=== PATIENT | female | born 1950 | race American Indian/Alaskan Native ===

== ENCOUNTER 2024-08-22 22:05 | Inpatient (IN) | payer OTHER, SELFPAY ==
[2024-08-22 17:36] VITALS: BP 169/90
[2024-08-22 17:53] LABS: % Basophils 0.8 % (0-2); % Eosinophils 1.4 % (0-6); % Immature Granulocytes 0.4 % (0-0.5); % Lymphocytes 18.1 % (20.5-51.1); % Neutrophils 70.3 % (42.2-75.2); Absolute Basophils 0.1 10^3/uL (0-0.2); Absolute Eosinophils 0.1 10^3/uL (0-0.7); Absolute Lymphocytes 1.8 10^3/uL (1.2-3.4); Absolute Monocytes 0.9 10^3/uL (0.1-0.6); Absolute Neutrophils 7.1 10^3/uL (1.4-6.5); Hematocrit 33.2 % (37.0-47.0); Mean Corp Hgb Conc. 33.1 g/dL (33.0-37.0); Mean Corpuscular Hgb 26.7 pg (27.0-31.0); Mean Corpuscular Volume 80.6 fL (81.0-99.0); Mean Platelet Volume 10.5 fL (7.4-10.4); Nucleated Red Blood Cells % 0 %; Platelet Count 190 10^3/uL (130-400); Red Blood Cell Count 4.12 10^6/uL (4.20-5.40); White Blood Cell Count 10.1 10^3/uL (4.8-10.8)
[2024-08-22 18:15] LABS: AST (SGOT) 22 U/L (14-36); Albumin 4.1 g/dl (3.5-5.0); Alkaline Phosphatase 61 U/L (38-126); Blood Urea Nitrogen 21 mg/dl (7-17); Carbon Dioxide 27 mmol/L (22-30); Chloride 104 mmol/L (98-107); Glucose 270 mg/dl (70-99); Lipase 342 U/L (23-300); Potassium 4.5 mmol/L (3.5-5.1); Sodium 135 mmol/L (135-145); Total Bilirubin 0.6 mg/dl (0.2-1.3); Total Protein 7.1 g/dl (6.3-8.2); eGFR > 60.00
[2024-08-22 18:24] LABS: ALT (SGPT) 15 U/L (0-35); Calcium 9.3 mg/dl (8.4-10.2)
[2024-08-22 20:01] VITALS: BP 186/81
--- NOTE | 2024-08-22 20:07 | ED.GENMED ---
History of Present Illness
General
Chief Complaint: Change in Mental Status
Source: family
Exam Limitations: none
Time Seen by Provider: 08/22/24 19:49
History of Present Illness
History of Present Illness:
See MDM
If applicable-neuro sx onset
Date of onset of symptoms: 08/18/24
Past History
Past History
ED Past Medical History: HTN and NIDDM
ED Past Surgical History: None
Social History
Tobacco: Non-smoker
Alcohol: None
Phy Exam
Physical Exam
Physical Exam:
See MDM
Scores
NIH Stroke Score
Level of Consciousness: 0 - Alert
LOC Questions: 1-Answers one correctly
LOC Commands: 0-Performs both correctly
Best Horizontal Gaze: 0-Normal
Visual Dumont: 3=Bilateral hemianopia
Facial Palsy: 0=Normal, symmetrical
Motor - Right Arm: 0=No drift 10 seconds
Motor - Left Arm: 0=No drift 10 seconds
Motor - Right Le-No drift 5 seconds
Motor - Left Le-No drift 5 seconds
Limb Ataxia: 0-Absent
Sensation: 0-Normal
Best Language: 0-No aphasia
Dysarthria: 0-Normal
Extinction and Inattention: 0-No abnormality
NIH Total Score:: 4
Course
Orders/Labs/Results
Orders:
Orders
08/22/24 17:44
CT Head W/o Iv Contrast Urgent
Comment:
Reason For Exam: confusion headache
08/22/24 17:49
Complete Blood Count/With Diff Urgent
Comprehensive Metabolic Panel Urgent
Lipase Urgent
08/22/24 19:50
Electrocardiogram (*1) Urgent
Reason for Study: TIA/Stroke
EKG- Treatment ONCE
08/22/24 20:07
PTT Urgent
Prothrombin Time Urgent
08/22/24 20:20
Aspirin Chewable [Low Strength Aspirin] 324 mg PO NOW STA
08/22/24 20:22
Consult Neurology [NEUROLOGY CONSULT] Routine
Consulting Provider: Dakota Junior
Was physician already notified: Yes
Abnormal Lab Results
08/22/24
17:49
RBC 4.12 L 10^6/uL
(4.20-5.40)
Hgb 11.0 L g/dL
(12.0-16.0)
Hct 33.2 L %
(37.0-47.0)
MCV 80.6 L fL
(81.0-99.0)
MCH 26.7 L pg
(27.0-31.0)
MPV 10.5 H fL
(7.4-10.4)
Absolute Neuts (auto) 7.1 H 10^3/uL
(1.4-6.5)
Absolute Monos (auto) 0.9 H 10^3/uL
(0.1-0.6)
Lymphocytes % 18.1 L %
(20.5-51.1)
BUN 21 H mg/dl
(7-17)
Glucose 270 H mg/dl
(70-99)
Lipase 342 H U/L
(23-300)
08/22/24 17:49
08/22/24 17:49
Vital Signs
Initial and Last Documented VS:
Initial Vital Signs
Temp Pulse Resp BP Pulse Ox
98.5 F 88 18 169/90 97
08/22/24 17:36 08/22/24 17:36 08/22/24 17:36 08/22/24 17:36 08/22/24 17:36
Last Documented Vital Signs
Temp Pulse Resp BP Pulse Ox
98.5 F 77 21 186/81 100
08/22/24 17:36 08/22/24 20:15 08/22/24 20:15 08/22/24 20:01 08/22/24 20:15
MDM/Problems Addressed
Differential Diagnosis Includes:
HPI and MDM Narrative:
74-year-old female presenting with family for 3 days of headache, vomiting and disorientation. During this time, she has been complaining of visual issues but family assumed this was blurry vision. Blood work and CT head done in triage. It
appears that patient has large right posterior subacute stroke. She does have a history of hypertension and diabetes. Patient complains of blurry vision but it appears to be more consistent with a left homonymous hemianopia. Family also stated
that she has been more confused lately and intermittently leaning to [address] report and clinical findings, she was brought back to the treatment area. Case discussed with neurology
Physical exam
General: Well appearing and non-toxic
HEENT: protecting airway. Pupils equal reactive. EOMI. Visual field deficit noted to the left bilaterally
Neck: appears supple
CV: No evidence of cyanosis. Regular rate and rhythm
Resp: No accessory muscle use
Abd: Non-distended
Extremities: No deformities
Neuro: alert. Seems somewhat disoriented. Visual field cut noted
Psych: Normal affect
Skin: Intact
Problems Addressed including Acute and Chronic Conditions affecting care:
1. Subacute stroke
Acuity: acute
Prognosis: stable
Details: Patient is not a lytic candidate given duration of symptoms. Will ultimately admit for further workup
Updates
Case discussed with neurology. Neurology concerned about possible mass. Upon further questioning, patient does not develop a headache with coughing. Her headache is completely resolved at the moment. Her vomiting is preceded by nausea.
Neurology comfortable with aspirin and admitting
Differential Diagnosis (but not limited to): Stroke, tension headache, migraine, mass
Testing considered: CT angiogram
Drug therapy (if applicable): OTC meds, please see d/c instruction regarding Rx drugs
Amount and/or Complexity of Data Reviewed
Clinical info obtained from: Patient and family
External data reviewed: N/A
Labs I independently reviewed (but not limited to): Mild anemia, hyperglycemia
Radiology: The CT scan was personally and independently reviewed. In addition, official CT report reviewed.
Pulse Ox: not hypoxic
EKG independently reviewed: Sinus rhythm, normal axis, no STEMI
Continuity Coordinator: Sinus rhythm
Critical Care: N/A
Risk of Complication:
Social Determinants of health: Good social support
Discussed with other providers: Neurology
Escalation of Care includes Admit/Obs: Given subacute infarct, will admit for further workup
Occasional wrong word or 'sound a like' substitutions may have occurred due to the inherent limitations of voice recognition software. Read the chart carefully and recognize, using context, where substitutions have occurred.
*Critical Care Note
Total Time (30-74mins, 75-104mins- exclusive of procedures): Not Applicable
ED Attending Note
-
Portions of this chart may have been created with voice recognition software.� Occasional wrong word or��sound alike� substitutions may have occurred due to the inherent limitations of voice recognition software.
Discharge Plan
Departure
Patient Disposition: Admit
Date of Disposition: 08/22/24
Time of Disposition: 20:23
Admit to: Telemetry
Presentation/result/management discussed w/ accepting MD/DO: Hospitalist
Discharge Problem:
Stroke
Interventions
Interventions:
*Risk Screen - Suicide Last Done: 08/22/24 17:36
*General Assessment Last Done: 08/22/24 17:36
ED- Pulmonary Assessment Last Done: 08/22/24 20:00
ED- Neurological Assessment Last Done: 08/22/24 20:00
ED- Cardiac Assessment Last Done: 08/22/24 20:00
Discharge Date and Time
Print Language: FRENCH
[2024-08-22 20:32] LABS: INR 0.99; PT 13.6 Sec (11.4-14.6)
[2024-08-22] MEDS: LOW STRENGTH ASPIRIN 324 MG PO (20:32)
[2024-08-22 20:33] LABS: APTT 29.9 Sec (23.4-35.0)
--- NOTE | 2024-08-22 20:47 | HPS.HSE ---
Addendum entered and electronically signed by Arturo Beltran DO 08/22/24 22:40:
Patient seen and examined independently. Agree with findings and plan as set forth by KETTY Clay.
Patient is a 74y F with PMH significant for hypertension, DM-II and RA who presents to ED c/o 4 days of headache and vision changes. Symptoms started on Tuesday evening / Tuesday with R sided headache. Patient then developed N/V on Tuesday and
her headache became much more severe. She received OTC medications for headache with little relief. The nausea and headache gradually improved over the next 2 days. Today family noted that patent was having some vision issues - unable to see
things in the periphery / to the sides. She was taken to an Race Board Attendant for evaluation and was advised to come to the ED for further work-up.
CT scan done in the ED shows large area of decreased attenuation in the R SENIOR CYBER SECURITY ANALYST distribution c/w subacute CVA versus mass / edema.
Ass:
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
Hypertension
DM-II
Rheumatoid Arthritis
GERD
Iron Deficiency Anemia
Plan:
Admit for further evaluation and treatment.
ASA daily. Add statin.
Follow exam for neurologic changes - no evident / focal weakness. Pos L visual field deficit.
MRI in AM with and without contrast given concern for possible mass.
Neurology evaluation for additional recommendations.
PT / OT evaluations.
Adjust antihypertensive med regimen for normotension.
Hold oral hypoglycemics. Cover with SSI and update A1C.
Continue leflunomide.
Original Note:
Family Physician
-
Family Physician: NOT KNOW UNKNOWN - PT DOES
Chief Complaint
-
headache, nausea and vomiting
History of Present Illness
74-year-old female with PMH for type 2 Dm, RA,HTN presented to us for 3 days of headache, vomiting and disorientation. her headache was mainly on the right side. the back of her neck was hurting as well. she started vomiting yesterday. she
complained of blurry vision. she was not able to see from the side of her eyes. she was noted confused yesterday. denied fever, chills, congestion and cough. denied chest pain, sob. denied abdominal pain. denied dysuria or hematuria.
CT with the impression of Large area slight decreased attenuation in the expected right SENIOR CYBER SECURITY ANALYST territory most likely representing an evolving subacute nonhemorrhagic infarct. Mass lesion with white matter edema would be unlikely but cannot be entirely
excluded. Recommend MRI for more complete evaluation.
patient recived asa in ER. admitting for further management.
Medical History
Past Medical History
Past Medical History: Reports Other
Additional Past Medical History:
HTN
type 2 Dm
RA
Past Surgical History: Reports Other
Additional Past Surgical History:
cataract surgery
right hip repair
Social History
Tobacco: Non-smoker
Alcohol: None
Drug: None
Living: With Family
Family History
Family History: Not pertinent
Allergies / Home Medications
Allergies reflects when Allergies were last updated in [employer]
Home Medications with original date entered in [employer]
Allergy/Medication List:
Allergies
Allergy/AdvReac Type Severity Reaction Status Date / Time
No Known Allergies Allergy Unverified 08/22/24 17:42
Home Medications
acetaminophen 325 mg tablet (Tylenol) 650 mg PO Q6HPRN PRN mild pain 08/22/24
cholecalciferol (vitamin D3) 50 mcg (2,000 unit) tablet (Vitamin D3) 150 mcg PO DAILY 08/22/24
famotidine 20 mg tablet (Pepcid AC) 20 mg PO DAILYPRN PRN gerd 08/22/24
ferrous fumarate-folic acid 324 mg (106 mg iron)-1 mg tablet 1 tab PO DAILY 08/22/24
glimepiride 2 mg tablet 2 mg PO BID 08/22/24
leflunomide 10 mg tablet 20 mg PO DAILY 08/22/24
metformin 500 mg tablet 500 mg PO BID 08/22/24
telmisartan 40 mg tablet 40 mg PO DAILY 08/22/24
vitamins A,C,K-qank-owcwhg 2,148 mcg-113 mg-45 mg-17.4 mg tablet (PreserVision AREDS) 1 tab PO Q48H 08/22/24
Review of Systems
-
Constitutional: Reports No Symptoms
EENT: Reports No Symptoms
Respiratory: Reports No Symptoms
Cardiac: Reports No Symptoms
Abdomen/GI: Reports No Symptoms
: Reports No Symptoms
Musculoskeletal: Reports No Symptoms
Skin: Reports No Symptoms
Neurological: Reports Headache and Other (vision loss, vomiting)
Endocrine: Reports No Symptoms
Hematologic/Lymphatic: Reports No Symptoms
Psych: Reports No Symptoms
Physical Exam
Vital Signs
Vital Signs
Temp Pulse Resp BP Pulse Ox
98.5 F 85 18 186/81 98
08/22/24 17:36 08/22/24 20:45 08/22/24 20:45 08/22/24 20:01 08/22/24 20:30
Physical Exam
General: Well Developed, Well Nourished and No Apparent Distress
HEENT: NormoCephalic, Moist mucous membranes and Atraumatic
Respiratory: Clear
Cardiac: S1/S2 and Regular Rhythm; No Murmur or Rub
GI: Soft, Non Tender, Non Distended and Normal Bowel Sounds; No Organomegaly
Rectal: Deferred by Provider
Musculoskeletal: No Clubbing, No Cyanosis and No Edema
Skin: No Rash
Neuro: AO x 3 and Nonfocal/grossly intact
Psych: Calm
Laboratory Results
-
08/22/24 17:49
08/22/24 17:49
Laboratory Results
PT 13.6 Sec (11.4-14.6) 08/22/24 20:07
INR 0.99 08/22/24 20:07
APTT 29.9 Sec (23.4-35.0) 08/22/24 20:07
Total Bilirubin 0.6 mg/dl (0.2-1.3) 08/22/24 17:49
AST 22 U/L (14-36) 08/22/24 17:49
ALT 15 U/L (0-35) 08/22/24 17:49
Alkaline Phosphatase 61 U/L (38-126) 08/22/24 17:49
Lipase 342 U/L (23-300) H 08/22/24 17:49
Data Reviewed
-
CT Scan: Report Reviewed by me
Lab Data: Labs Reviewed by me
Impression/Plan
-
#subacute CVA
-head CT with Large area slight decreased attenuation in the expected right SENIOR CYBER SECURITY ANALYST territory most likely representing an evolving subacute nonhemorrhagic infarct. Mass lesion with white matter edema would be unlikely but cannot be entirely excluded.
Recommend MRI for more complete evaluation.
-obtain MRI/MRA
-asa, statin
-obtain a1c, and lipid profile
-PT/OT
-neurology consult
#iron deficiency anemia
-hgb 11.0
-no active bleeding
-ctm
-ferrous sulfate continued
#GERD
-Pepcid continued
#type 2 Dm
-sliding scale
-CHO diet
-hold metformin and glimepiride
#RA
-leflunomide continued
#essential HTN
-telmisartan continued
#DVT Prophylaxis
-scd
#CODE status
-full code
[2024-08-22 21:00] VITALS: BP 182/104
[2024-08-22 22:00] VITALS: BP 164/73
[2024-08-22 22:16] VITALS: BMI 22.0
[2024-08-22] MEDS: LIPITOR 40 MG PO (22:32)
[2024-08-22 23:00] VITALS: BP 151/65
[2024-08-23] VITALS (8 sets, daily range): BP systolic 141–179; BP diastolic 53–101; PULSE 88–90; BMI 20.6
[2024-08-23 01:02] LABS: Glucose - Point of Care 240 mg/dl (70-99)
[2024-08-23 06:01] LABS: Hematocrit 32.8 % (37.0-47.0); Hemoglobin 10.7 g/dL (12.0-16.0); Mean Corp Hgb Conc. 32.6 g/dL (33.0-37.0); Mean Corpuscular Hgb 26.4 pg (27.0-31.0); Mean Platelet Volume 11.1 fL (7.4-10.4); Platelet Count 185 10^3/uL (130-400); Red Blood Cell Count 4.05 10^6/uL (4.20-5.40); Red Cell Dist. Width 13.1 % (11.5-14.5); White Blood Cell Count 10.1 10^3/uL (4.8-10.8)
[2024-08-23 06:26] LABS: HDL Cholesterol 31 mg/dl; LDL Cholesterol, Calculated 97 mg/dl; Total Cholesterol 163 mg/dl (50-199); Triglyceride 178 mg/dl (10-149); Very Low Density Lipoprotein 35 mg/dl (0-30)
--- NOTE | 2024-08-23 07:27 | W.PN.HOSP.TC ---
Today's Communication/Plan
-
Await Brain MRI
Assessment / Plan
Assessment / Plan
Physical Exam
General: Well Developed, Well Nourished and No Apparent Distress
HEENT: Normocephalic, Moist mucous membranes and Atraumatic
Respiratory: Clear to Auscultation Bilaterally
Cardiac: S1/S2 and Regular Rhythm
GI: Soft, Non Tender, Non Distended and Normal Bowel Sounds
Musculoskeletal: No Cyanosis and No Edema
Skin: Warm. Dry.
Neuro: AAO x 3 and Non-focal/grossly intact. Left homonymous hemianopsia.
Psych: Calm
Assessment/Plan
74y F with PMH significant for hypertension, DM-II and RA who presented to ED c/o 4 days of headache and vision changes. Symptoms started on Tuesday (August 18) evening / Tuesday (08/19) with R sided headache. Patient then developed N/V on Tuesday
and her headache became much more severe. She received OTC medications for headache with little relief. The nausea and headache gradually improved over the following 2 days. On 08/22/24, family noted that patent was having some vision issues -
unable to see things in the periphery / to the sides. She was taken to an Skip Hoist Engineer for evaluation and was advised to come to the ED for further work-up. CT scan done in the ED showed large area of decreased attenuation in the R ELECTRICAL MACHINIST
distribution c/w subacute CVA versus mass / edema.
#Right occipital mass straddling the MCA/ELECTRICAL MACHINIST territory -- differential diagnosis stroke vs. mass vs. abscess vs. bleed
-Await Brain MRI and MRA Head and Neck
-asa, statin
-Follow a1c, and lipid profile
-PT/OT
-neurology consult
#iron deficiency anemia
-hgb 11.0
-no active bleeding
-ctm
-ferrous sulfate continued
#GERD
-Pepcid continued
#type 2 Dm
-sliding scale
-CHO diet
-hold metformin and glimepiride
#RA
-leflunomide held
-I spoke with Pharmacist Maribel Childers: Leflunomide has a super long half-life (> 18 days) AND it has side effects that include headache and vision issues - both are in her chief complain for this visit.
#Essential HTN
-telmisartan continued
#DVT Prophylaxis
-scd. Lovenox.
#CODE status
-full code
Anticipated Discharge: 24 - 48 hours
Subjective/Interval History
-
Date of Service: August 23, 2024
Patient was seen and examined. She denied any headache, her vision symptoms are better -- later in the afternoon, she had a re-occurrence of her presenting symptoms. She also denied chest pain, shortness of breath or any other complaints.
Objective Data
-
Labs:
Laboratory Results
08/22/24 08/23/24
20:07 05:22
WBC 10.1
Hgb 10.7 L
Hct 32.8 L
Plt Count 185
PT 13.6
INR 0.99
APTT 29.9
Vital Signs:
Vital Signs
Temp Pulse Resp BP Pulse Ox
98.5 F 82 16 152/53 97
08/22/24 17:36 08/23/24 05:00 08/23/24 05:00 08/23/24 05:00 08/23/24 05:00
[2024-08-23] MEDS: LOW STRENGTH ASPIRIN 81 MG PO (08:14)
[2024-08-23] MEDS: FOLVITE 1 MG PO (08:14)
[2024-08-23] MEDS: FEOSOL 325 MG PO (08:15)
[2024-08-23] MEDS: COZAAR 50 MG PO (08:15)
[2024-08-23 08:36] LABS: Glucose - Point of Care 307 mg/dl (70-99)
--- NOTE | 2024-08-23 09:10 | PTOTSP ---
Speech Language Pathology
Pt seen for cognitive-linguistic evaluation. Attempted language line, but on hold for 15 minutes for gmat instructor before disconnecting (pt speaks Kannada dialect). Family chose to interpret for pt. No dysarthria reported by family. L neglect
noted with pt requiring cueing to see L side of page. Oriented to month and year, not day of month. Pt appeared impulsive and distractible throughout evaluation. Confrontation naming= 03/26. Semantic paraphasias and/or visual errors noted with
confrontation naming, although not reported by family in conversation. Examples include: 'bat' for 'pen,' 'bike' for 'wheelchair,' 'crab' for 'octopus.'
Pt seen for clinical bedside swallow evaluation. P.O. trials of regular solids, puree, soft solids, and thin liquids provided. Adequate mastication, bolus formation, and A-P transit noted with no oral residue. No overt signs of aspiration.
Recommend:
(1) Regular solids/thin liquids
(2) General aspiration precautions
(3) Meds as tolerated
(4) SENIOR DIGITAL DESIGNER to continue to follow for cognitive-linguistic tx. Further dysphagia tx does not appear indicated at this time.
[2024-08-23] MEDS: NOVOLOG FLEXPEN-LOW RESISTANCE 4 UNITS SC (09:14)
--- NOTE | 2024-08-23 09:37 | PTCARENOTE ---
pt awake. speaks no albanian pt son at bedside translating. nihss done with night RN. left visual field cut present. follows all commands.
--- NOTE | 2024-08-23 09:41 | CM ---
Addendum entered by Nhi Oliveira 08/23/24 15:25:
Plan: Discharge to home with family w/ script for Outpatient Therapy
Addendum entered by Nhi Oliveira 08/23/24 10:07:
Pt does have glucometer and monitors sugars
Original Note:
CM reviewed chart and met with pt and her son at bedside. IA done. Pt is visiting from [place], has been here 2 months, staying with her son and his family. Pt is non Albanian speaking. Does have a traveler's insurance policy, policy information given
to Registration.
No family physician, offered Family Medicine residency program
Pharmacy: [facility] [address]
PLOF: Son reports that mother is independent with ambulation and ADLs at baseline, ambulated without a device, able to use steps
Transport to be determined
Plan: DC plan to be determined pending PT/OT/ Speech recommendations, CM will monitor and support coordination of care
[2024-08-23 09:53] LABS: Glycohemoglobin (HgbA1c) 8.5 % (4.0-5.6)
[2024-08-23 11:40] LABS: Glucose - Point of Care 217 mg/dl (70-99)
[2024-08-23] MEDS: NOVOLOG FLEXPEN-LOW RESISTANCE 2 UNITS SC (11:43)
--- NOTE | 2024-08-23 15:13 | CON.NEURO ---
Neuro Assessment/Plan
Assessment
Head CT imgs rev'd with patient and dtr, R occipital mass straddling the MCA/LIBRARY CATALOGING TECHNICIAN territory
the localization explains her symptoms with occipital explaining the left homo hemianopsia and the more parietal explaining the simple visual hallucinations
ddx including stroke, mass, abscess, bleed
need MRI brain with gado, MRA head/neck
ASA 81
Consultation
Order
Date of Consultation: 08/23/24
Requesting Provider: Rafael Wylie
Reason for Consult: Stroke
Subjective/Objective
Subjective Data
Date of Service: August 23, 2024
from ED notes:
74-year-old female presenting with family for 3 days of headache, vomiting and disorientation. During this time, she has been complaining of visual issues but family assumed this was blurry vision. Blood work and CT head done in triage. It
appears that patient has large right posterior subacute stroke. She does have a history of hypertension and diabetes. Patient complains of blurry vision but it appears to be more consistent with a left homonymous hemianopia. Family also stated
that she has been more confused lately and intermittently leaning to 1 side
I spoke with Dr Wylie and reviewed the head CT last night. no symptoms to suggest increased ICP. The headache was not worse with cough/straining, no double vision, vomiting always with nausea.
This afternoon, symptoms recurred. when she closes her eyes the simple visual hallucinations are still there in the left field. Dtr reports she is acting normally, no other apparent deficits
Objective Data
Vital Signs
Temp Pulse Resp BP Pulse Ox
36.8 C 88 16 174/76 97
08/23/24 11:20 08/23/24 08:39 08/23/24 08:39 08/23/24 08:39 08/23/24 08:39
Lab Results
08/23/24 05:22
08/22/24 17:49
PT 13.6 Sec (11.4-14.6) 08/22/24 20:07
INR 0.99 08/22/24 20:07
APTT 29.9 Sec (23.4-35.0) 08/22/24 20:07
Sodium 135 mmol/L (135-145) 08/22/24 17:49
Potassium 4.5 mmol/L (3.5-5.1) 08/22/24 17:49
BUN 21 mg/dl (7-17) H 08/22/24 17:49
Glucose 270 mg/dl (70-99) H 08/22/24 17:49
Calcium 9.3 mg/dl (8.4-10.2) 08/22/24 17:49
LDL Cholesterol, Calc 97 mg/dl 08/23/24 05:22
Patient Allergies
No Known Allergies Allergy (Unverified 08/22/24 17:42)
Physical Exam
-
L homonymous hemianopsia
face symmetric
grossly full strength
Medications
-
Active Medications
Generic Name Dose Route Start Last Admin
Trade Name Freq PRN Reason Stop Dose Admin
Acetaminophen 650 mg 08/22/24 22:07
Acetaminophen 650 Mg Rectal Suppository RECTAL 09/19/24 22:06
Q4HPRN PRN
LATIF, mild pain, or temp >100.4F
Acetaminophen 650 mg 08/22/24 22:07
Acetaminophen 325 Mg Tablet PO 09/19/24 22:06
Q4HPRN PRN
LATIF, mild pain, or temp >100.4F
Aspirin 81 mg 08/23/24 08:00 08/23/24 08:14
Aspirin 81 Mg Chewable Tablet PO 09/20/24 07:59 81 mg
DAILY OSWALD Administration
Atorvastatin Calcium 40 mg 08/22/24 22:07 08/22/24 22:32
Atorvastatin (Lipitor) 40 Mg Tablet PO 09/19/24 22:06 40 mg
QPM OSWALD Administration
Dextrose 12.5 grams 08/22/24 22:07
Dextrose 50% (0.5 Grams/Ml) 50 Ml Syringe IV 09/19/24 22:06
[id number] PRN
hypoglycemia
Protocol
Famotidine 20 mg 08/22/24 22:07
Famotidine 20 Mg Tablet PO 09/19/24 22:06
DAILYPRN PRN
gerd
Ferrous Sulfate 325 mg 08/23/24 08:00 08/23/24 08:15
Ferrous Sulfate 325 Mg Tablet PO 09/20/24 07:59 325 mg
DAILY OSWALD Administration
Folic Acid 1 mg 08/23/24 08:00 08/23/24 08:14
Folic Acid 1 Mg Tablet PO 09/20/24 07:59 1 mg
DAILY OSWALD Administration
Glucagon 1 mg 08/22/24 22:07
Glucagon 1 Mg Vial IM 09/19/24 22:06
PRN PRN
hypoglycemia
Protocol
Hydralazine HCl 10 mg 08/22/24 21:24
Hydralazine 20 Mg/Ml Vial IV 09/19/24 21:23
Q6HPRN PRN
hypertension
Insulin Aspart 0 units 08/23/24 07:30 08/23/24 11:43
Insulin Aspart Low Resistance 300 Units/3 Ml Pen.Injctr SC 09/20/24 07:29 2 units
AC OSWALD Administration
Protocol
Losartan Potassium 50 mg 08/23/24 08:00 08/23/24 08:15
Losartan 50 Mg Tablet PO 09/20/24 07:59 50 mg
DAILY OSWALD Administration
Sodium Chloride 0 flush 08/22/24 23:00
Sodium Chloride 0.9% (Flush) Syringe IV 09/19/24 22:59
PER PROTOCOL OSWALD
Home Medications
�Medication �Instructions �Recorded
acetaminophen 325 mg tablet 650 mg PO Q6HPRN PRN mild pain 08/22/24
(Tylenol)
cholecalciferol (vitamin D3) 50 150 mcg PO DAILY Supplement 08/22/24
mcg (2,000 unit) tablet (Vitamin
D3)
famotidine 20 mg tablet (Pepcid AC) 20 mg PO DAILYPRN PRN gerd 08/22/24
ferrous fumarate-folic acid 324 mg 1 tab PO DAILY Supplement 08/22/24
(106 mg iron)-1 mg tablet
glimepiride 2 mg tablet 2 mg PO BID Diabetes 08/22/24
leflunomide 10 mg tablet 20 mg PO DAILY Autoimmune Disorder 08/22/24
metformin 500 mg tablet 500 mg PO BID Diabetes 08/22/24
telmisartan 40 mg tablet 40 mg PO DAILY Blood Pressure 08/22/24
vitamins A,C,L-uucq-qefjrn 2,148 1 tab PO Q48H Supplement 08/22/24
mcg-113 mg-45 mg-17.4 mg tablet
(PreserVision AREDS)
--- NOTE | 2024-08-23 16:34 | PTCARENOTE ---
pt having periods of seeing flashing lights and colors in her peripheral vision. dr mata and dr Davalos notified. dr Mata in to see pt.
[2024-08-23 16:44] LABS: Glucose - Point of Care 196 mg/dl (70-99)
[2024-08-23] MEDS: NOVOLOG FLEXPEN-LOW RESISTANCE 1 UNITS SC (16:46)
[2024-08-23] MEDS: LIPITOR 40 MG PO (16:46)
[2024-08-23] MEDS: APRESOLINE 10 MG IV (16:46)
[2024-08-23] MEDS: TYLENOL 650 MG PO (17:10)
[2024-08-23 17:49] LABS: Glucose - Point of Care 173 mg/dl (70-99)
--- NOTE | 2024-08-23 18:36 | PTCARENOTE ---
Received pt from ED, pt ambulated from stretcher to bed with RW and 1 assistive personnel, VSS, AAOx3, NIHSS of 1, family at bedside for translation. Pt and family oriented to call ravi and room.
[2024-08-23 22:04] LABS: Glucose - Point of Care 166 mg/dl (70-99)
[2024-08-23] MEDS: LOVENOX 40 MG SC (22:09)
[2024-08-24] VITALS (24 sets, daily range): BP systolic 110–206; BP diastolic 60–121; BMI 20.5
[2024-08-24 01:01] LABS: Glucose - Point of Care 232 mg/dl (70-99)
--- NOTE | 2024-08-24 01:21 | W.PN.UPDATE ---
Update Note
Progress Note Update
~ 12:52 am Pt with witnessed seizure activity, first lasted approx 1 minute, son at bedside and witnessed full seizure. Approximately 3-5 minutes later, patient had second seizure for approximately 90 seconds. Patient did bite tongue, was not
incontinent. Tonic/clonic seizure activity w/postical phase. BP 206/121, HR 117, Resp 20, Room air 98%, temp 98 degrees. Blood glucose 232.
TT to Dr. Junior, Neurology, updated on events. Requested Keppra load, 60 mg/kg now. Pharmacy notified of order and . And Ceribell monitoring if not back to baseline in one hour.
Patient w/third seizure around 1:20 am, that lasted for 90 seconds. Patient being transferred to ICU for closer monitoring and possible Ceribell monitoring if needed.
Fourth seizure @ 1:36 am, lasted approximately 90 seconds.
[2024-08-24] MEDS: KEPPRA 30 MG IV (01:32)
--- NOTE | 2024-08-24 04:35 | PTCARENOTE ---
Patient back from MRI about 2200, Prior to MRI patients NIH was a 2 no weakness, left side visual deficit. Pt was also experiencing gazing over ot the left and talking to someone that was not there, per family this was getting frequent but also
happened while she was in the ER, Nurse did observe episode during my assessment, patient was awake and taklking but could not refocus her onto her family or myself, lasted under a min and she had no knowledge of episode. Updated Megan HDEZ
regarding status, her VSS, she went to MRI about the same time. patient has been ST on monitor,
Patient was resting in bed son at bedside, rounds done at 2300, about 0030, son rang ravi and during my assessment patient was having a seizure, she was shaking rigid and eyes fixated to left, vital signs done, accu check as well as EKG, KETTY Guzman
up to see patient, Seizure lasted about a min, patient proceeded to have 3 more seizures with in the hour all lasting 1 min to 1 min 30 seconds, patient became grossly postictal after episodes. KETTY was there to witness seizures , call placed to
NEURO, Keppra loading dose given and patient sent to ICU for further monitoring. Report given to ICU nurse at bedside, patient was transferred in bed by ICU staff.
--- NOTE | 2024-08-24 04:40 | PTCARENOTE ---
~ 0230: Patient transferred from bed 2122 on ICU bed and monitor to room 3367. Dual RN NIHSS handoff assessment unable to be completed. The patient is drowsy does not follow commands . Patient's son is translating for staff. MAEx4. Even chest rise
with RR 19. SBP 168. ACCOUNTS PAYABLE TECHNICIAN made aware. SBP trending down without medication. Seizure pads in place. PEr KETTY Siegel, hold off ceribell application for 30 minutes to observe if the patient has any more seizures. Post 30 minutes, the
patient did not have any seizures. ACCOUNTS PAYABLE TECHNICIAN made aware and plan to continue holding off ceribell application. NSR on the monitor. Pt's son and daughter in law updated at the bedside. Questions answered. The patient's son does not want the patient to be
aware of cause of her illness, nor that she possibly had a stroke. Pt's family is worried that diagnosis may cause further stress to the patient. PAtient cleansed with CHG wipes. Family remains at the bedside,
[2024-08-24 04:44] LABS: Hematocrit 35.4 % (37.0-47.0); Hemoglobin 11.8 g/dL (12.0-16.0); Mean Corp Hgb Conc. 33.3 g/dL (33.0-37.0); Mean Corpuscular Hgb 26.5 pg (27.0-31.0); Mean Corpuscular Volume 79.6 fL (81.0-99.0); Mean Platelet Volume 10.8 fL (7.4-10.4); Platelet Count 197 10^3/uL (130-400); Red Blood Cell Count 4.45 10^6/uL (4.20-5.40); White Blood Cell Count 14.4 10^3/uL (4.8-10.8)
[2024-08-24 05:13] LABS: Blood Urea Nitrogen 17 mg/dl (7-17); Calcium 9.4 mg/dl (8.4-10.2); Carbon Dioxide 22 mmol/L (22-30); Chloride 106 mmol/L (98-107); Estimated Creatinine Clearance 69 ml/min; Glucose 290 mg/dl (70-99); Potassium 4.6 mmol/L (3.5-5.1); Sodium 136 mmol/L (135-145); eGFR > 60.00
--- NOTE | 2024-08-24 05:50 | PTCARENOTE ---
0410: Patient opened her eyes and having some conversation with her family. Conversation is still confused per family. Pupils are + 2. LAbs drawn and sent. Resting promoted.
--- NOTE | 2024-08-24 07:05 | CON.INTV ---
Addendum entered and electronically signed by Bailey Bridges MD 08/24/24 11:39:
Sodium noted to be 136.
In view of mild cerebral edema, will target sodium level of 145
3% bolus, 200 mL x 1 ordered, will check repeat BMP at about 2 PM.
Original Note:
Consultation
Consultation Request
Date/Time Consultation Requested: 08/24/2024
Date/Time Consultation Performed: 08/24/2024
Requesting Provider: Latonya Mcdermott
Performing Provider: Bailey Bridges
Reason for Consultation: Seizures
Medical History
-
Chief Complaint: Seizures
History of Present Illness:
Patient is a 74-year-old gentleman who presented to the hospital with about 3 days history of headache confusion and some nausea. Patient also reported some visual changes. A CT head was performed which was suggestive of large right posterior
subacute stroke. Patient has a history of hypertension and diabetes. Mass lesion was also a concern in addition to stroke and an MRI was recommended. Patient was admitted to the hospital and was started on aspirin in addition to usual stroke care
and a follow-up MRI was ordered.
Overnight, 08/24, patient had multiple witnessed seizure activities lasting anywhere close to 90 seconds each. A total of 4 episodes of seizures noted. Patient was loaded with Keppra and transferred to ICU for closer monitoring. Vendor Representatives
consult was requested for further input.
Past Medical History
Past Medical History: Reports Other
Additional Past Medical History:
HTN
type 2 Dm
RA
Past Surgical History: Reports Other
Additional Past Surgical History:
cataract surgery
right hip repair
Social History
Tobacco: Non-smoker
Alcohol: None
Drug: None
Living: With Family
Family History
Family History: Not pertinent
Allergies / Home Medications
Allergies / Home Medications
Allergies
Allergy/AdvReac Type Severity Reaction Status Date / Time
No Known Allergies Allergy Unverified 08/22/24 17:42
Home Medications
�Medication �Instructions �Recorded �Confirmed �Last Taken �Type
acetaminophen 325 mg tablet 650 mg PO Q6HPRN PRN mild pain 08/22/24 08/22/24 08/20/24 History
(Tylenol)
cholecalciferol (vitamin D3) 50 150 mcg PO DAILY Supplement 08/22/24 08/22/24 08/22/24 History
mcg (2,000 unit) tablet (Vitamin
D3)
famotidine 20 mg tablet (Pepcid AC) 20 mg PO DAILYPRN PRN gerd 08/22/24 08/22/24 Unknown History
ferrous fumarate-folic acid 324 mg 1 tab PO DAILY Supplement 08/22/24 08/22/24 08/22/24 History
(106 mg iron)-1 mg tablet
glimepiride 2 mg tablet 2 mg PO BID Diabetes 08/22/24 08/22/24 08/22/24 History
leflunomide 10 mg tablet 20 mg PO DAILY Autoimmune Disorder 08/22/24 08/22/24 08/22/24 History
metformin 500 mg tablet 500 mg PO BID Diabetes 08/22/24 08/22/24 08/22/24 History
telmisartan 40 mg tablet 40 mg PO DAILY Blood Pressure 08/22/24 08/22/24 08/22/24 History
vitamins A,C,N-mtal-rhcuvj 2,148 1 tab PO Q48H Supplement 08/22/24 08/22/24 08/20/24 History
mcg-113 mg-45 mg-17.4 mg tablet
(PreserVision AREDS)
Review of Systems
-
Hematologic/Lymphatic: Other (All 14 systems reviewed and negative except as stated above in the history of present illness. Pertinent positives are headache, intermittent visual blurriness and visual hallucinations.)
Vitals / Labs / Diagnostic Testing
Vital Signs
Temp Pulse Resp BP Pulse Ox
98.4 F 98 22 206/121 98
08/24/24 04:00 08/24/24 01:05 08/24/24 01:05 08/24/24 01:05 08/24/24 01:05
Lab Data
08/24/24 04:34
08/24/24 04:34
Diagnostic Testing:
Physical Exam
-
HEENT: Normocephalic
Cardiovascular: S1/S2
Respiratory: Clear and Non-Labored Respirations
GI: Soft and Non Distended
Neurology: Awake and Alert
Skin: Warm
General: Comfortable
Assessment
-
#1. Seizure disorder/Status Epilepticus
- At least 4 episodes overnight, suspect in the setting of acute stroke
- Protecting airway well
- Electrolytes are all unremarkable, no hypoglycemia noted.
- S/p loading dose of Keppra IV
- Monitor closely in the ICU, neurology consult
- As needed Ativan for breakthrough seizure
#2. Right occipital subacute stroke with concern for underlying mass lesion
- MRI/MRI suggestive of CVA rather than mass
- On aspirin, statins
- Telemetry to monitor for any arrhythmia
- Completed window of permissive hypertension, continue losartan
Other medical diagnoses:
- HTN
- H/o RA
- GERD
- iron deficiency anemia
- DM. Start nightly Lantus, 8 units and SSI in addition
DVT prophylaxis with subcu Lovenox
Discussed with neurology attending. Updated patient's and [id number] at bedside.
Critical Care time 72 mins -- The patient is admitted for acute critical illness for the treatment of vital organ failure and/or prevention of further life-threatening conditions. Total care includes time spent in review of history, physical exam,
medications, hemodynamic/ventilator parameters, laboratory data, imaging and discussion with house staff, pharmacy, respiratory therapy, actuarial analyst, and nursing.
Data:
CT Head 08/2024: Large area slight decreased attenuation in the expected right SCREEN PRINT OPERATOR territory most likely representing an evolving subacute nonhemorrhagic infarct. Mass lesion with white matter edema would be unlikely but cannot be entirely excluded.
Recommend MRI for more complete evaluation.
--- NOTE | 2024-08-24 07:28 | W.PN.HOSP.TC ---
Today's Communication/Plan
-
Keppra for multiple seizures overnight
Cardio consult for JUD and Zio eval. Patient going to [facility] next month.
Assessment / Plan
Assessment / Plan
Physical Exam
General: Well Developed, Well Nourished and No Apparent Distress
HEENT: Normocephalic, Moist mucous membranes and Atraumatic
Respiratory: Clear to Auscultation Bilaterally
Cardiac: S1/S2 and Regular Rhythm
GI: Soft, Non Tender, Non Distended and Normal Bowel Sounds
Musculoskeletal: No Cyanosis and No Edema
Skin: Warm. Dry.
Neuro: AAO x 3 and Non-focal/grossly intact. Left homonymous hemianopsia.
Psych: Calm
Assessment/Plan
74y F with PMH significant for hypertension, DM-II and RA who presented to ED c/o 4 days of headache and vision changes. Symptoms started on Tuesday (August 18) evening / Tuesday (08/19) with R sided headache. Patient then developed N/V on Tuesday
and her headache became much more severe. She received OTC medications for headache with little relief. The nausea and headache gradually improved over the following 2 days. On 08/22/24, family noted that patent was having some vision issues -
unable to see things in the periphery / to the sides. She was taken to an Order Taker for evaluation and was advised to come to the ED for further work-up. CT scan done in the ED showed large area of decreased attenuation in the R DONKEY RIDE OPERATOR
distribution c/w subacute CVA versus mass / edema.
#Right occipital mass straddling the MCA/DONKEY RIDE OPERATOR territory
-Brain MRI and MRA Head and Neck suggestive of a stroke -- suspected all DONKEY RIDE OPERATOR territory
-asa, statin
-Follow a1c, and lipid profile
-PT/OT
-neurology consult
-Cardiology consult for JUD and Zio (as per my communication with neurology on 08/24/24)
#Seizure disorder
#Status Epilepticus
- At least 4 episodes overnight 08/23/24 to 08/24/24, suspect in the setting of acute stroke
- S/p loading dose of Keppra IV
- Continue Keppra 1000 mg BID
- Monitor closely in the ICU, neurology consult
- As needed Ativan for breakthrough seizure
- Seizure precautions
#Mild Cerebral Edema
-Sodium 136
-3% bolus saline, 200 mL x 1 ordered --> goal is to have sodium 145 given mild cerebral edema
-Appreciate content architect
#iron deficiency anemia
-no active bleeding
-ctm
-ferrous sulfate continued
#GERD
-Pepcid continued
#type 2 Dm
-sliding scale
-CHO diet
-hold metformin and glimepiride
#RA
-leflunomide held
-I spoke on 08/23/24 with Pharmacist Maribel Childers: Leflunomide has a super long half-life (> 18 days) AND it has side effects that include headache and vision issues - both are in her chief complain for this visit.
#Essential HTN
-telmisartan continued
#Incidental note is made of a 1.8 cm left thyroid nodule
#DVT Prophylaxis
-scd. Lovenox.
#CODE status
-full code
Anticipated Discharge: > 48 hours
Subjective/Interval History
-
Date of Service: August 24, 2024
Patient was seen and examined. Overnight, patient had several seizures and was transferred to the intensive care unit.
Objective Data
-
Labs:
Laboratory Results
08/24/24
04:34
WBC 14.4 H
Hgb 11.8 L
Hct 35.4 L
Plt Count 197
Sodium 136
Potassium 4.6
Chloride 106
Carbon Dioxide 22
BUN 17
Creatinine 0.6
Glucose 290 H
Calcium 9.4
Vital Signs:
Vital Signs
Temp Pulse Resp BP Pulse Ox
98.4 F 82 18 110/64 97
08/24/24 04:00 08/24/24 07:00 08/24/24 07:00 08/24/24 07:00 08/24/24 07:00
I&O
08/23/24 08/24/24 08/25/24
06:59 06:59 06:59
Intake Total 35 / 35
Balance 35 / 35
--- NOTE | 2024-08-24 08:11 | PTOTSP ---
GOLF COURSE SUPERINTENDENT Note
Patient transferred to ICU level of care. New orders required to continue GOLF COURSE SUPERINTENDENT services. Will f/u when medically appropriate and orders received.
[2024-08-24 08:16] LABS: Glucose - Point of Care 245 mg/dl (70-99)
--- NOTE | 2024-08-24 08:20 | PTCARENOTE ---
Pt was rec'd from night RN in report, sleeping with son at bedside also asleep. Per report, family wants to let patient sleep as she has not been able to for several days. VSS, see flowsheet.
08:20-pt reassessed, son awake, pt drowsy / arousable, pts son translating (Kannada speaking) and states she is AOx3. Pt declines breakfast at this time, BG 245. Pt with significant tongue lac from sz, c/o discomfort. Son requesting pt remain lying
flat and let her sleep.
[2024-08-24] MEDS: TYLENOL 650 MG PO (08:38)
[2024-08-24] MEDS: NOVOLOG FLEXPEN-LOW RESISTANCE 2 UNITS SC (08:42)
--- NOTE | 2024-08-24 09:12 | PTCARENOTE ---
Pt transported to stat CT scan with AMANDA Sr and PCT, son accompanying.
[2024-08-24] MEDS: KEPPRA 1000 MG IV ×2 (09:49→20:18)
[2024-08-24] MEDS: FOLVITE 1 MG PO (09:49)
[2024-08-24] MEDS: LOW STRENGTH ASPIRIN 81 MG PO (09:49)
[2024-08-24] MEDS: COZAAR 50 MG PO (09:49)
[2024-08-24] MEDS: REGLAN 10 MG IV (09:49)
[2024-08-24] MEDS: FEOSOL 325 MG PO (10:03)
[2024-08-24] MEDS: SODIUM CHLORIDE 3% 200 IV (10:11)
--- NOTE | 2024-08-24 11:19 | PTCARENOTE ---
Plan was discussed in rounds with Drs. Bridges, Dr. Junior and nursing staff. Pt ok to participate in therapy evaluation, new orders requested. Orders rec'd for Keppra, Reglan and 3% Nacl per team, carried out. Pt with headache right temporal area,
medicated per orders, sleeping comfortably afterward. Son and DIL at bedside, verbalized understanding of plan of care. Stroke packet provided. Per son, the patient has debilitating anxiety and limited medical knowledge/education, he does not want
her to be told she has had a stroke as it would cause worsened anxiety. He is explaining her medical situation in broad terms and translating appropriately to patient. DIL feeding patient yogurt, pills swallowed whole with yogurt with no difficulty.
Safe environment continues.
--- NOTE | 2024-08-24 11:58 | W.PN.NEURO.1 ---
Today's Communication / Plan
-
ASA 81 given large stroke size cortical involvement
Keppra 1000 BID
ok to downgrade
Consider Alisia RENNER
Neuro Assessment/Plan
Assessment
Head CT imgs 08/22 rev'd with patient and dtr, R occipital hypodensity. upon further review. reasonable that this is all ECOLOGY TEACHER territory
MRI imgs from 08/[address] imgs done 08/24 after the seizures show that this is a stroke and demonstrated stability.
the localization explains her symptoms with occipital explaining the left homo hemianopsia and the more parietal explaining the visual hallucinations
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
Keppra 1000 BID would treat at least a year then may taper
ASA 81
as this is large vessel with no apparent vascular disease, ? embolic consider cardiology consult for Alisia RENNER. loop recorder would not be reasonable as she is going home to [facility] next month
Subjective/Objective
Subjective Data
Date of Service: August 24, 2024
~1 am spoke with Latonya HDEZ re: 2 brief seizures, status epilepticus, recommended keppra load 60/kg, had 2 more seizures. Recommended Ceribell if not back to baseline in 1 hr which was not necessary
this morning still having multiple episodes of of simple and complex visual hallucinations left visual field
Objective Data
Vital Signs
Temp Pulse Resp BP Pulse Ox
36.8 C 78 19 138/72 98
08/24/24 08:05 08/24/24 11:15 08/24/24 11:15 08/24/24 11:00 08/24/24 09:00
Lab Results
08/24/24 04:34
PT 13.6 Sec (11.4-14.6) 08/22/24 20:07
INR 0.99 08/22/24 20:07
APTT 29.9 Sec (23.4-35.0) 08/22/24 20:07
Sodium 136 mmol/L (135-145) 08/24/24 04:34
Potassium 4.6 mmol/L (3.5-5.1) 08/24/24 04:34
BUN 17 mg/dl (7-17) 08/24/24 04:34
Glucose 290 mg/dl (70-99) H 08/24/24 04:34
Calcium 9.4 mg/dl (8.4-10.2) 08/24/24 04:34
LDL Cholesterol, Calc 97 mg/dl 08/23/24 05:22
Patient Allergies
No Known Allergies Allergy (Unverified 08/22/24 17:42)
Physical Exam
-
Left homonymous hemianopsia
otherwise nonfocal
--- NOTE | 2024-08-24 14:13 | CON.CAR ---
Addendum entered and electronically signed by Josue Carrizales MD 08/24/24 16:30:
I saw and examined the patient.
The Customer Service Leader's note was reviewed and I agree with the note.
Comment:
GEN: sleepy, non responsive
HEENT: supple, anicteric, mmm
LUNGS: CTA, no wheezes/rales
CV: Reg, S1/S2, /6 syst LSB, no gallop
ABD: soft, BS+, NT/ND
EXT: No edema
NEURO: not following commands
SKIN: No rash
Plan:
74 year old female with past medical history of diabetes, hypertension who presents with blurry vision was found to have an acute stroke in the right BLINDSTITCH HEMMER territory. Subsequently she then had several seizures and was loaded with Keppra. We are
asked to evaluate her regarding possible JUD/cardiac monitoring.
Patient currently very lethargic being loaded with Keppra and poorly responsive.
Recommend start with transthoracic echo to evaluate LVEF. Will also pursue 14-day monitor as outpatient to look for paroxysmal atrial fibrillation. For now with her seizure history I would hold off on transesophageal echo. With her age she would
not be a candidate for PFO closure. Continue to follow on telemetry.
Will continue risk factor modification.
Blood pressure is overall stable. Continue losartan.
Continue antiplatelets including aspirin and atorvastatin for now.
Original Note:
Consultation
Consultation Request
Date/Time Consultation Performed: 08/24/24
Requesting Provider: Dr. Junior
Performing Provider: Katherin King PA-C for Dr. Carrizales
Reason for Consultation: CVA, eval for JUD
Medical History
-
Chief Complaint: headache, confusion
History of Present Illness:
Patient is a 74 yo F with PMH of HTN, DM2 who presented to [facility] ER due to 3 days of confusion, headache, and several episodes of vomiting. She had also complained of some blurry vision. Head CT showed large area of decreased attenuation in right
BLINDSTITCH HEMMER territory most likely representing evolving subacute nonhemorrhagic infarct. There was concern initially for possible mass rather than stroke, however by neurology review of imaging, felt to be most consistent with stroke. Cardiology consulted
for evaluation of JUD and cardiac monitoring as large vessel territory without significant vascular disease noted by imaging. Patient lethargic, as being Keppra loaded- overnight had 4 seizure episodes within approximately 10-minute time. No
seizures since initiation of Keppra. She is awake and oriented x 3 per family, she is ucy-[id number]-xcgejceb. No cardiac history per family. She is planned to return to [facility] on 09/26.
PMH:
Hypertension
Diabetes
Osteoarthritis
Past Medical History
Past Medical History: Other (in HPI)
Social History
Tobacco: Non-Smoker
Alcohol: None
Living: With Family
Family History
Family History: CAD (father)
Allergies / Home Medications
Allergy/AdvReac Type Severity Reaction Status Date / Time
No Known Allergies Allergy Unverified 08/22/24 17:42
�Medication �Instructions �Recorded �Confirmed �Type
acetaminophen 325 mg tablet 650 mg PO Q6HPRN PRN mild pain 08/22/24 08/22/24 History
(Tylenol)
cholecalciferol (vitamin D3) 50 150 mcg PO DAILY Supplement 08/22/24 08/22/24 History
mcg (2,000 unit) tablet (Vitamin
D3)
famotidine 20 mg tablet (Pepcid AC) 20 mg PO DAILYPRN PRN gerd 08/22/24 08/22/24 History
ferrous fumarate-folic acid 324 mg 1 tab PO DAILY Supplement 08/22/24 08/22/24 History
(106 mg iron)-1 mg tablet
glimepiride 2 mg tablet 2 mg PO BID Diabetes 08/22/24 08/22/24 History
leflunomide 10 mg tablet 20 mg PO DAILY Autoimmune Disorder 08/22/24 08/22/24 History
metformin 500 mg tablet 500 mg PO BID Diabetes 08/22/24 08/22/24 History
telmisartan 40 mg tablet 40 mg PO DAILY Blood Pressure 08/22/24 08/22/24 History
vitamins A,C,Y-dsma-iifnod 2,148 1 tab PO Q48H Supplement 08/22/24 08/22/24 History
mcg-113 mg-45 mg-17.4 mg tablet
(PreserVision AREDS)
Review of Systems
-
Unable to obtain full review of systems at this time due to: Language Barrier and Other (lethargic)
History Source: Family
Physical Exam
Vital Signs
Temp Pulse Resp BP Pulse Ox
98.2 F 74 18 134/71 96
08/24/24 08:05 08/24/24 13:15 08/24/24 13:15 08/24/24 13:00 08/24/24 13:25
Lab Results
08/24/24 04:34
Physical Exam
General: No Apparent Distress, Comfortable and Other (lethargic)
HEENT: Normocephalic, Anicteric and Moist Mucous Membranes
Respiratory: Clear and Non Labored Respirations
Cardiac: S1/S2 and Regular Rhythm
GI: Soft, Non Tender, Non Distended and Normal Bowel Sounds
Musculoskeletal: No Clubbing, No Cyanosis and No Edema
Skin: Warm and Dry
Impression / Plan
-
Primary Supervisor Receiving And Processing: none prior to admission
Assessment:
Presentation with confusion, headache
Large BLINDSTITCH HEMMER territory subacute infarct
Seizures
Hypertension
HLD
Diabetes
Osteoarthritis
Plan:
- Patient presented with confusion and headache and found to have large BLINDSTITCH HEMMER territory subacute infarct. With seizures overnight, now getting Keppra loaded. Cardiology consulted for evaluation for JUD and outpatient cardiac monitoring
- TTE ordered
- Would consider for outpatient JUD and next 1-2 weeks if remains seizure-free. no dysphagia issues per son
- BPs stable
- review of tele SR without arrhythmia
- would plan for 4 week cardiac monitoring upon DC
- hgb 8.5%. needs improved diabetic control
- started on statin this admission. LDL 97.
- she is planned to return to [facility] 09/26/24.
- d/w nursing. d/w patient and son/DIL at bedside
Data Reviewed
-
EKG: Tracing Personally Visualized and interpreted
CT Scan: Report Reviewed by me
MRI: Report Reviewed by me
Labs: Labs Reviewed by me
Old Records: Reviewed
--- NOTE | 2024-08-24 14:29 | PTCARENOTE ---
Labs drawn and sent per orders. Plan discussed w/ Katherin cardiology PA. Pt drowsy, resting when undisturbed. Son and DIL at bedside.
[2024-08-24] MEDS: NOVOLOG FLEXPEN-MODERATE RESISTANCE 3 UNITS SC (14:33)
[2024-08-24 14:40] LABS: Glucose - Point of Care 229 mg/dl (70-99)
[2024-08-24 15:32] LABS: Blood Urea Nitrogen 20 mg/dl (7-17); Calcium 9.1 mg/dl (8.4-10.2); Carbon Dioxide 24 mmol/L (22-30); Chloride 109 mmol/L (98-107); Estimated Creatinine Clearance 59 ml/min; Glucose 229 mg/dl (70-99); Potassium 4.1 mmol/L (3.5-5.1); Sodium 137 mmol/L (135-145); eGFR > 60.00
[2024-08-24] MEDS: SODIUM CHLORIDE 3% 250 IV (16:36)
--- NOTE | 2024-08-24 16:46 | CM ---
Therapy recommendation for home health. This CM met and spoke with son and Yola. Patient is visiting from [place]. Her [facility] insurance is travel insurance. Son said this insurance does not cover in-home services. He would prefer therapy teach
family what is needed and they will care for patient. Also, they have a friend that is a therapist and she will assist. Patient returns to [facility] the week of September.
[2024-08-24] MEDS: NOVOLOG FLEXPEN-MODERATE RESISTANCE 5 UNITS SC (18:03)
[2024-08-24] MEDS: LOVENOX 40 MG SC (18:03)
[2024-08-24] MEDS: LIPITOR 40 MG PO (18:03)
[2024-08-24 18:14] LABS: Glucose - Point of Care 258 mg/dl (70-99)
[2024-08-24 20:56] LABS: Blood Urea Nitrogen 21 mg/dl (7-17); Calcium 9.3 mg/dl (8.4-10.2); Carbon Dioxide 23 mmol/L (22-30); Chloride 113 mmol/L (98-107); Estimated Creatinine Clearance 69 ml/min; Glucose 205 mg/dl (70-99); Potassium 3.8 mmol/L (3.5-5.1); Sodium 140 mmol/L (135-145); eGFR > 60.00
[2024-08-24] MEDS: LANTUS 0.08 UNITS SC (21:43)
[2024-08-24 21:54] LABS: Glucose - Point of Care 203 mg/dl (70-99)
[2024-08-25] VITALS (13 sets, daily range): BP systolic 133–188; BP diastolic 65–95; PULSE 100; O2SAT 98; BMI 20.7
[2024-08-25] MEDS: APRESOLINE 10 MG IV (00:11)
[2024-08-25] MEDS: TYLENOL 650 MG PO (00:32)
--- NOTE | 2024-08-25 00:42 | PTCARENOTE ---
Late entry: Assumed care of pt at 1900. Pt is A/O x4, able to follow commands, see stroke/neuro flowsheet on worklist for full neuro assessment details. SR on monitor, HR in 80s. SpO2 97% on RA. Able to ambulate to BR with standby assistance. Son,
[id number]-[id number], and grandson at bedside.
Midnight: assessment unchanged. Pt's BP elevated, at one point was >180 and manual BP done and was 160 systolic, but now BP reading in 180s. Hydralazine administered, see EMAR. Pt then c/o headache, medicated with PRN Tylenol, see EMAR for details.
Neurological assessment unchanged at time of headache. Currently ST 110s-120s on monitor. Pt's daughter in law in room, staying the night.
[2024-08-25] MEDS: REGLAN 10 MG IV (02:03)
--- NOTE | 2024-08-25 04:24 | PTCARENOTE ---
Assessment unchanged. After pt medicated for headache earlier with Tylenol, she reported very little relief and difficulty sleeping. Pt had received Reglan earlier in the morning when she reported a headache--discussed with ICU TECHNOLOGY PROGRAM MANAGER Walker Duffy and
another x1 dose of IV Reglan ordered and administered at approx 0200 (see EMAR). Pt has since been asleep. BP has trended down since receiving Hydralazine earlier. SR 80s on monitor. SpO2 96% on RA. Both son and daughter in law are currently asleep
in room.
[2024-08-25 05:49] LABS: Hematocrit 34.7 % (37.0-47.0); Hemoglobin 11.4 g/dL (12.0-16.0); Mean Corp Hgb Conc. 32.9 g/dL (33.0-37.0); Mean Corpuscular Hgb 26.1 pg (27.0-31.0); Mean Corpuscular Volume 79.4 fL (81.0-99.0); Mean Platelet Volume 10.9 fL (7.4-10.4); Platelet Count 215 10^3/uL (130-400); Red Blood Cell Count 4.37 10^6/uL (4.20-5.40); White Blood Cell Count 15.2 10^3/uL (4.8-10.8)
[2024-08-25 06:12] LABS: Blood Urea Nitrogen 18 mg/dl (7-17); Calcium 9.3 mg/dl (8.4-10.2); Carbon Dioxide 24 mmol/L (22-30); Chloride 109 mmol/L (98-107); Estimated Creatinine Clearance 69 ml/min; Glucose 201 mg/dl (70-99); Sodium 138 mmol/L (135-145); eGFR > 60.00
--- NOTE | 2024-08-25 07:59 | W.PN.CARDCBS ---
Today's Communication / Plan
-
Echo with preserved ejection fraction and no significant disease.
Telemetry with no atrial fibrillation. Arrange outpatient monitoring for A-fib.
Okay for discharge from cardiology standpoint
Will consider the as outpatient
Continue aspirin, atorvastatin, and Zartan.
Needs improved sugar control.
Impression / Plan
-
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
Assessment:
Presentation with confusion, headache
Large SQE territory subacute infarct
Seizures
Hypertension
HLD
Diabetes
Osteoarthritis
Echo: 08/24/24: EF 60-65%, mild MR
Plan:
-Echo with preserved ejection fraction and no significant valve disease. Telemetry was reviewed which has revealed no atrial fibrillation.
-Will arrange outpatient monitor and follow-up.
-No further seizures.
-Consider JUD as outpatient if seizures improved.
- hgb 8.5%. needs improved diabetic control
- started on statin this admission. LDL 97.
- she is planned to return to [facility] 09/26/24.
d/w patient and son/DIL at bedside
Progress Note - Salesperson [employer] T[employer]
Subjective
Date of Service: August 25, 2024
More alert today. No seizures overnight. No palpitations or chest pains.
Objective
Labs:
08/25/24 05:23
08/25/24 05:23
Labs
Hgb 11.4 g/dL (12.0-16.0) L 08/25/24 05:23
Hct 34.7 % (37.0-47.0) L 08/25/24 05:23
Plt Count 215 10^3/uL (130-400) 08/25/24 05:23
PT 13.6 Sec (11.4-14.6) 08/22/24 20:07
INR 0.99 08/22/24 20:07
APTT 29.9 Sec (23.4-35.0) 08/22/24 20:07
Sodium 138 mmol/L (135-145) 08/25/24 05:23
Potassium 4.0 mmol/L (3.5-5.1) 08/25/24 05:23
BUN 18 mg/dl (7-17) H 08/25/24 05:23
Creatinine 0.6 mg/dL (0.6-1.0) 08/25/24 05:23
Glucose 201 mg/dl (70-99) H 08/25/24 05:23
Vital Signs and I&O:
Vital Signs
Temp Pulse Resp BP Pulse Ox
97.8 F 88 17 140/73 97
08/25/24 00:10 08/25/24 06:00 08/25/24 06:00 08/25/24 06:00 08/25/24 06:00
Vital Signs
Temp Pulse Resp BP Pulse Ox
97.8 F 88 17 140/73 97
08/25/24 00:10 08/25/24 06:00 08/25/24 06:00 08/25/24 06:00 08/25/24 06:00
Intake & Output
08/23/24 08/24/24 08/25/24 08/26/24
06:59 06:59 06:59 06:59
Intake Total 35 / 35 410 / 410
Output Total 300 / 300
Balance 35 / 35 110 / 110
Physical Exam
Physical Exam
GEN: No distress, awake,
HEENT: supple, anicteric, mmm
LUNGS: CTA, no wheezes/rales
CV: Reg, S1/S2, 1/6 syst LSB, no gallop
ABD: soft, BS+, NT/ND
EXT: No edema
NEURO: visula field deficit
SKIN: No rash
[2024-08-25 08:05] LABS: Glucose - Point of Care 172 mg/dl (70-99)
[2024-08-25] MEDS: NOVOLOG FLEXPEN-MODERATE RESISTANCE 1 UNITS SC ×2 (08:14→12:51)
[2024-08-25] MEDS: FOLVITE 1 MG PO (08:15)
[2024-08-25] MEDS: COZAAR 50 MG PO (08:15)
[2024-08-25] MEDS: FEOSOL 325 MG PO (08:15)
[2024-08-25] MEDS: LOW STRENGTH ASPIRIN 81 MG PO (08:15)
[2024-08-25] MEDS: KEPPRA 1000 MG IV (08:19)
--- NOTE | 2024-08-25 08:22 | W.PN.INTV ---
Today's Communication / Plan
Recommendations
- No more seizure episodes
- Continue telemetry monitoring, patient can be transferred out of ICU to telemetry floor versus home
- [employer] service will sign off, please call as needed
Assessment
-
#1. Seizure disorder/Status Epilepticus
- At least 4 episodes 08/24, suspect in the setting of acute stroke
- Protecting airway well
- Electrolytes are all unremarkable, no hypoglycemia noted.
- S/p loading dose of Keppra IV, on maintenance
- Monitor closely in the ICU, neurology consult
- As needed Ativan for breakthrough seizure
#2. Right occipital subacute stroke with concern for underlying mass lesion
- MRI/MRI suggestive of CVA rather than mass
- On aspirin, statins
- Telemetry to monitor for any arrhythmia
- Completed window of permissive hypertension, continue losartan
- f/u CT stable, unchanged.
Other medical diagnoses:
- HTN
- H/o RA
- GERD
- iron deficiency anemia
- DM. Start nightly Lantus, 8 units and SSI in addition
DVT prophylaxis with subcu Lovenox
Critical Care time 42 mins -- The patient is admitted for acute critical illness for the treatment of vital organ failure and/or prevention of further life-threatening conditions. Total care includes time spent in review of history, physical exam,
medications, hemodynamic/ventilator parameters, laboratory data, imaging and discussion with house staff, pharmacy, respiratory therapy, willower, and nursing.
Data:
ECHO 08/2024: Left ventricle is small in size. Normal left ventricular wall thickness and
systolic function. No regional wall motion abnormalities are seen. LV ejection
fraction is 60-65% by visual assessment. Diastolic function indeterminate.
Normal right ventricular size. Normal right ventricular systolic function.
Mild mitral regurgitation.
No prior study available for comparison.
CT Head 08/2024: Large area slight decreased attenuation in the expected right INSTRUCTOR INDUSTRIAL DESIGN territory most likely representing an evolving subacute nonhemorrhagic infarct. Mass lesion with white matter edema would be unlikely but cannot be entirely excluded.
Recommend MRI for more complete evaluation.
Subjective Dataa
Subjective Data
Date of Service:
Date of Service: August 25, 2024
Objective Data
Data Reviewed
Vital Signs / I&O / Oxygen:
Vital Signs
Temp Pulse Resp BP Pulse Ox
97.8 F 88 17 140/73 97
08/25/24 00:10 08/25/24 06:00 08/25/24 06:00 08/25/24 06:00 08/25/24 06:00
Intake and Output
08/24/24 08/25/24 08/26/24
06:59 06:59 06:59
Intake Total 35 / 35 410 / 410
Output Total 300 / 300
Balance 35 / 35 110 / 110
SaO2 97
Labs/Micro/Reports
Lab Data
08/25/24 05:23
08/25/24 05:23
--- NOTE | 2024-08-25 09:20 | PTCARENOTE ---
Rec'd pt at 0700. Pt non-monegasque speaking, family at bedside to translate. NIHSS-1 for left side visual cut, unchanged from previous assessment. Follows commands, TUCKER with equal strength. Ambulates to bathroom with supervision. Seizure pads in place
when pt in bed. Lungs CTA. +BS, abd soft/nt. Family remains at bedside.
--- NOTE | 2024-08-25 10:50 | W.PN.HOSP.TC ---
Addendum entered and electronically signed by James Pina MD 08/25/24 15:40:
I communicated (via [place] [employer]) with on-call neurologist Dr. Junior, and he said since patient was sleepy, the plan is to start with Keppra 500 mg BID, and if patient has seizure(s) then increase up to 750 mg [address] Junior said he already talked to
patient's son about this, and that there is no need for me to send a new prescription to the patient's pharmacy (since I sent in 500 mg pills of the Keppra).
Original Note:
Today's Communication/Plan
-
Discharge today
Assessment / Plan
Assessment / Plan
Physical Exam
General: Well Developed, Well Nourished and No Apparent Distress
HEENT: Normocephalic, Moist mucous membranes and Atraumatic
Respiratory: Clear to Auscultation Bilaterally
Cardiac: S1/S2 and Regular Rhythm
GI: Soft, Non Tender, Non Distended and Normal Bowel Sounds
Musculoskeletal: No Cyanosis and No Edema
Skin: Warm. Dry.
Neuro: AAO x 3 and Non-focal/grossly intact. Left homonymous hemianopsia.
Psych: Calm
Assessment/Plan
74y F with PMH significant for hypertension, DM-II and RA who presented to ED c/o 4 days of headache and vision changes. Symptoms started on Tuesday (August 18) evening / Tuesday (08/19) with R sided headache. Patient then developed N/V on Tuesday
and her headache became much more severe. She received OTC medications for headache with little relief. The nausea and headache gradually improved over the following 2 days. On 08/22/24, family noted that patent was having some vision issues -
unable to see things in the periphery / to the sides. She was taken to an Fish Worm Grower for evaluation and was advised to come to the ED for further work-up. CT scan done in the ED showed large area of decreased attenuation in the R PUBLIC WORKS SUPERVISOR
distribution c/w subacute CVA versus mass / edema.
#Right occipital mass straddling the MCA/PUBLIC WORKS SUPERVISOR territory
-Brain MRI and MRA Head and Neck suggestive of a stroke -- suspected all PUBLIC WORKS SUPERVISOR territory
-Continue Aspirin 81 mg daily
-Continue Statin - Lipitor 40 mg daily
-Follow a1c, and lipid profile
-PT/OT
-neurology consult
-Cardiology consult for JUD and Zio (as per my communication with neurology on 08/24/24)
-Echo with preserved ejection fraction and no significant disease.
-Telemetry with no atrial fibrillation
-Call outpatient [facility] cardiology for monitoring for A-fib
#Headache
-I communicated on August 25, 2024 with on-call neurologist and he recommended Reglan if moderate headache and Fioricet if severe headache outpatient
#Seizure disorder
#Status Epilepticus
- At least 4 episodes overnight 08/23/24 to 08/24/24, suspect in the setting of acute stroke
- S/p loading dose of Keppra IV
- Continue Keppra PO extended release 1000 mg PO BID on discharge -- will need to give at least 1 year's supply
#Mild Cerebral Edema
-Sodium 136
-3% bolus saline, 200 mL x 1 ordered --> goal is to have sodium 145 given mild cerebral edema
-Appreciate machine pie maker
#iron deficiency anemia
-no active bleeding
-ctm
-ferrous sulfate continued
#GERD
-Pepcid continued
#Type 2 Diabetes Mellitus
-sliding scale
-CHO diet
-Resume metformin and glimepiride on discharge
#RA
-leflunomide held -- check with outpatient physician regarding if and when to resume
-I spoke on 08/23/24 with Pharmacist Maribel Childers: Leflunomide has a super long half-life (> 18 days) AND it has side effects that include headache and vision issues - both are in her chief complain for this visit.
#Essential Hypertension
-telmisartan continued
#Incidental note is made of a 1.8 cm left thyroid nodule
#DVT Prophylaxis: SCDs. Lovenox.
#CODE status: Full Code
I spoke with patient's family and patient in the room, and they are all in agreement for patient to be discharged today.
More than 30 minutes spent in discharge including
Final examination of the patient
Summarizing hospital stay
Instructions for continuing care to all relevant caregivers
Preparation of discharge records, prescriptions, and referral forms
Total time spent (in minutes): 38
Anticipated Discharge: Today
Subjective/Interval History
-
Date of Service: August 25, 2024
Patient was seen and examined. Overnight patient had headache. There were no more seizure episodes.
Objective Data
-
Labs:
Laboratory Results
08/25/24
05:23
WBC 15.2 H
Hgb 11.4 L
Hct 34.7 L
Plt Count 215
Sodium 138
Potassium 4.0
Chloride 109 H
Carbon Dioxide 24
BUN 18 H
Creatinine 0.6
Glucose 201 H
Calcium 9.3
Vital Signs:
Vital Signs
Temp Pulse Resp BP Pulse Ox
97.7 F 87 18 141/74 97
08/25/24 08:00 08/25/24 08:00 08/25/24 08:00 08/25/24 07:00 08/25/24 08:00
I&O
08/24/24 08/25/24 08/26/24
06:59 06:59 06:59
Intake Total 35 / 35 410 / 410
Output Total 300 / 300
Balance 35 / 35 110 / 110
[2024-08-25 12:30] LABS: Glucose - Point of Care 181 mg/dl (70-99)
--- NOTE | 2024-08-25 13:17 | W.DCSUMMARY ---
Discharge Summary
Discharge Data
Date of Admission: 08/22/24
Date of Discharge: 08/25/24
Total time spent discharging patient (in min): 38
-
Pending Results: No
Hospital Course
74 y/o female with past medical history significant for hypertension, Type 2 Diabetes Mellitus and Rheumatoid Arthritis who presented reporting about 4 days of headache and vision changes, especially with peripheral vision. Patient was found to have
a possible stroke versus mass (right occipital mass straddling the MCA/ASSISTANT FOOTBALL COACH territory, as per neurology), neurology was consulted and patient was placed on Aspirin and statin. Patient's brain lesion explained her left homonymous hemianopsia and
simple visual hallucinations. MRI Brain and repeat CT Head later suggested patient's brain lesion was a stroke. Patient had several more seizures and was started on Keppra. Patient was transferred to the Intensive Care Unit, and the snuff packing machine operator was
consulted. Cardiology was consulted for Zio cardiac monitoring and also possible JUD study. Cardiology recommended starting with transthoracic echo to evaluate LVEF, and 14-day monitor as outpatient to look for paroxysmal atrial fibrillation. But
for now with patient's seizure history it was recommended to hold off on transesophageal echo; with her age, patient would not be a candidate for PFO closure. It was noted that patient's echocardiogram showed preserved ejection fraction, no
significant disease; telemetry showed no atrial fibrillation. Patient's seizures resolved and she was stable for discharge. I communicated (via [place] Text) with on-call neurologist Dr. Junior, and he said since patient was sleepy, the plan was to start
with Keppra 500 mg BID, and if patient has seizure(s) outpatient then could increase up to 750 mg BID or 1000 mg BID; Dr. Junior mentioned he already talked to patient's son about this, and that there was and is no need for me to send a new Keppra
prescription to the patient's pharmacy (since I sent in 500 mg pills of the Keppra).
Discharge Plan
-
Patient Disposition: Home (Routine Discharge)
Discharge Diagnosis/Procedures: Right occipital subacute stroke with concern for underlying mass lesion
Seizure disorder/Status Epilepticus
Headache
Mild Cerebral Edema
Iron deficiency anemia
GERD
Type 2 Diabetes Mellitus
Rheumatoid Arthritis
Essential Hypertension
1.8 cm left thyroid nodule

CT Head (as per radiologist's report):
'FINDINGS:
Unenhanced CT imaging of the head reveals a large area of slight decreased attenuation in the expected right ASSISTANT FOOTBALL COACH territory most likely representing a subacute evolving nonhemorrhagic infarct. The ventricles, cisterns and sulci are slightly prominent
commensurate with age. Some minor decreased attenuation is seen in the periventricular deep white matter bilaterally suggesting senescent and/for small vessel related ischemic changes. There is no extra-axial fluid collection. The brainstem and
posterior fossa structures demonstrate no significant focal abnormality.
IMPRESSION:
Large area slight decreased attenuation in the expected right ASSISTANT FOOTBALL COACH territory most likely representing an evolving subacute nonhemorrhagic infarct. Mass lesion with white matter edema would be unlikely but cannot be entirely excluded. Recommend MRI
for more complete evaluation.'

Brain MRI (as per radiologist's report):
'FINDINGS:
Large region of right occipital restricted diffusion appearing as moderate increased signal intensity on diffusion imaging, with mild to moderate diminished signal intensity on ADC. Consistent with subacute infarct. There is associated mild to
moderate right occipital lobe edema, and mild right parietal cortical edema. Cerebral sulcal effacement. Otherwise no significant mass effect.
Superimposed tiny foci of low signal intensity susceptibility are noted, likely reflecting petechial hemorrhage. Gyriform enhancement pattern, likely due to combination of blood brain barrier breakdown, neovascularization, and impaired
autoregulation. However, no enhancing mass lesion identified.
There is a small focus of low signal intensity restricted diffusion in the posterior left temporal white matter and within the left periventricular white matter, which could represent tiny chronic hemorrhagic lacunar infarcts.
Mild to moderate chronic microvascular white matter ischemic disease.
No midline shift. No extra-axial collection. No hydrocephalus. Age-appropriate atrophy.
Normal flow-voids in the vascular structures at skull base.
Mild paranasal sinus mucosal thickening. The mastoid air cells are clear.
IMPRESSION:
Right occipital lobe subacute infarct. Mild to moderate occipital lobe edema and mild right parietal cortical edema. Tiny petechial hemorrhages. Cerebral sulcal effacement. No mass and no other significant mass effect.'

MRA Brain (as per radiologist's report):
'FINDINGS:
No cavernous ICA aneurysm or stenosis.
The anterior, middle, and posterior cerebral arteries are patent, without hemodynamically significant stenosis, branch occlusion, or aneurysm.
The vertebral and basilar arteries are patent. No aneurysm of the posterior circulation.
IMPRESSION:
No hemodynamically significant stenosis, branch occlusion, or aneurysm.'

MRA Neck (as per radiologist's report):
'FINDINGS:
Aortic arch: Unremarkable aortic arch. Normal branch pattern.
Right carotid and vertebral circulation:
The common carotid artery is widely patent. The carotid bulb is patent. No significant plaque within the carotid bulb or internal carotid artery. Proximal ICA tortuosity with kinking. No hemodynamically significant stenosis.
The right vertebral artery is patent.
Left carotid and vertebral circulation:
The common carotid artery is widely patent. The carotid bulb is patent. No significant plaque within the carotid bulb or internal carotid artery. No hemodynamically significant stenosis.
The left vertebral artery is patent.
IMPRESSION:
No significant carotid plaque formation or hemodynamically significant stenosis, bilaterally.
Incidental note is made of a 1.8 cm left thyroid nodule. Nonspecific. Consider nonemergent follow-up thyroid ultrasound.'

REPEAT CT Head (as per radiologist's report):
'FINDINGS: Focal area of decreased density involving the right occipital lobe and the posterior right temporal lobe, compatible with region of subacute infarction. There are some rounded areas of relatively increased density within the region of
decreased density, with attenuation value less then acute hemorrhage. Perhaps these represent regions of brain which has not yet undergone encephalomalacia.
There is no evidence for acute intracranial hemorrhage.
There is some loss of sulcal definition adjacent to the region of infarction, suggesting a component of edema.
There is no midline shift. There is no evidence for obstructive hydrocephalus.
Mild diffuse atrophy in this 74-year-old patient. There is also mild to moderate leukomalacia which appears stable.
Moderate soft tissue density in the right sphenoid sinus compatible with sinus disease. The rest of the paranasal sinuses appear clear. The mastoid air cells appear clear.
IMPRESSION:
Focal area of decreased density involving the right occipital lobe in the posterior right temporal lobe, compatible with region of subacute infarction. This is without significant interval change from CT of August 22, 2024. There is no evidence for
associated acute hemorrhage.'
Condition: Fair
Diet: Low Fat, Low Cholesterol, Low Sodium and Diabetic, Carb Controlled
Activity: As tolerated
Driving Restrictions: No driving
Activity Restrictions/Additional Instructions:
You will need refills on all of your medications including your new medications. Please discuss with your primary care doctor and all your outpatient physicians.
Your Diabetes Mellitus needs to be better controlled. Please discuss with your outpatient physician within the next 5 days.
Instructions: Aspirin, Atorvastatin, Butalbital, Acetaminophen, and Caffeine, Levetiracetam, Metoclopramide
Referrals:
Ana Paula Pat CRNP [Specified Professional Personl, Neurology] - in one to two weeks
Referral Note: Hospital Follow-Up for stroke
Josue Carrizales MD [Active, Cardiology] - in less than 1 week
Referral Note: Stroke. Hospital Follow-Up. Needs outpatient cardiac care nurse.
UNKNOWN - PT DOES,NOT KNOW [Family Provider]
Additional Discharge Medication Instructions: Aspirin, Atorvastatin and Levetiracetam are new medications.
Leflunomide on hold -- has side effects that include headache and vision issues -- please discuss with your velocity shooter if and when you should resume this medication.
Take Levetiracetam as instructed with special instructions by neurology.
Prescriptions:
New
atorvastatin 40 mg Tablet
40 mg PO QPM Qty: 30 2RF
aspirin 81 mg Tablet,Chewable
81 mg PO DAILY Qty: 30 4RF
metoclopramide HCl [Reglan] 5 mg tablet
5 mg PO DAILY PRN (Reason: Moderate Headache) Qty: 3 0RF
rderybzsui-gbihmpnfhuire-ssld [Fioricet] 50-300-40 mg capsule
1 cap PO DAILYPRN PRN (Reason: severe headache) Qty: 6 0RF
levetiracetam 500 mg tablet extended release 24 hr
1,000 mg PO Q12H Qty: 120 11RF
Continued
metformin 500 mg Tablet
500 mg PO BID
glimepiride 2 mg Tablet
2 mg PO BID
famotidine [Pepcid AC] 20 mg Tablet
20 mg PO DAILYPRN PRN (Reason: gerd)
telmisartan 40 mg Tablet
40 mg PO DAILY
ferrous fumarate-folic acid 324 mg (106 mg iron)-1 mg Tablet
1 tab PO DAILY
cholecalciferol (vitamin D3) [Vitamin D3] 50 mcg (2,000 unit) Tablet
150 mcg PO DAILY
PreserVision AREDS 2,148 mcg-113 mg-45 mg-17.4mg Tablet
1 tab PO Q48H
acetaminophen [Tylenol] 325 mg Tablet
650 mg PO Q6HPRN PRN (Reason: mild pain)
Held
leflunomide 10 mg Tablet
20 mg PO DAILY
Hold Instructions: Resume on 08/31/24. Please ask your velocity shooter if, and if so, when, you should resume this medication.
Discharge Orders:
Discharge Patient (As Directed); Ordered 08/25/24
Ordered By: James Pina
Discharge Date and Time
Discharge Date/Time: 08/25/24 16:51
Print Language: BOT[place]NA[place]
--- NOTE | 2024-08-25 15:05 | CM ---
CM reviewed chart, patient seen asleep bedside, son present- concerns regarding cost of medications. Son reports he spoke with pharmacy, cost of Levetiracetam is hundreds of dollars, concerned about cost of all of medications combined. Nurse and
Hospitalist aware, new script sent to pharmacy. CM spoke with Pharmacist, cost of all five scripts total $83.79, confirmed medications are in stock, update to Nurse. CM will continue to follow for all discharge planning needs.
Plan; home with family
--- NOTE | 2024-08-25 15:09 | W.PN.NEURO.1 ---
Today's Communication / Plan
-
d/c home
Keppra 500 BID
ASA 81
Neuro Assessment/Plan
Assessment
Head CT imgs 08/22 rev'd with patient and dtr, R occipital hypodensity. upon further review. reasonable that this is all RAND SEWER territory
MRI imgs from 08/[address] imgs done 08/24 after the seizures show that this is a stroke and demonstrated stability.
the localization explains her symptoms with occipital explaining the left homo hemianopsia and the more parietal explaining the visual hallucinations
the visual hallucinations - simple partial seizure
as she is 5 days out from stroke, cerebral edema should be decreasing, with her sedation, will try decreasing Keppra 500 BID - spoke with son that if she has seizures or frequent episodes of VH can try increasing Keppra to 750 or back to 1000,
return to ED if sz >5 minutes, sz cluster, or post ictal >1 hr
ASA 81
cardiology consult appreciated - 2 wk monitor, no JUD
Subjective/Objective
Subjective Data
Date of Service: August 25, 2024
after starting Keppra no further episodes of visual hallucinations, no seizures
Objective Data
Vital Signs
Temp Pulse Resp BP Pulse Ox
36.9 C 96 22 162/87 97
08/25/24 11:56 08/25/24 13:00 08/25/24 13:00 08/25/24 12:00 08/25/24 13:00
Lab Results
08/25/24 05:23
08/25/24 05:23
PT 13.6 Sec (11.4-14.6) 08/22/24 20:07
INR 0.99 08/22/24 20:07
APTT 29.9 Sec (23.4-35.0) 08/22/24 20:07
Sodium 138 mmol/L (135-145) 08/25/24 05:23
Potassium 4.0 mmol/L (3.5-5.1) 08/25/24 05:23
BUN 18 mg/dl (7-17) H 08/25/24 05:23
Glucose 201 mg/dl (70-99) H 08/25/24 05:23
Calcium 9.3 mg/dl (8.4-10.2) 08/25/24 05:23
LDL Cholesterol, Calc 97 mg/dl 08/23/24 05:22
Patient Allergies
No Known Allergies Allergy (Unverified 08/22/24 17:42)
Physical Exam
-
left homonymous hemianopsia
otherwise nonfocal
--- NOTE | 2024-08-25 16:13 | PTCARENOTE ---
Spoke with pt's son, son stated that he was told that pt would get a monitor prior to going home per distresser, explained that this is usually done outpatient, elieser text sent to Dr. Carrizales to confirm-per MD his office will call family on
tuesday to set up monitor time-this was relayed to pt's son. Pt's son then was expressing concerns about medications for pt and if insurance would cover it since [place]. Case management notified. Pt's son called
pharmacy[facility], RN [facility] and change needed for Keppra to be covered. elieser texted Dr. Pina and new script sent to pharmacy. Confirmed new scripts were rec'd by manager case and stefany
and meds confirmed with pt's son. Discharged instructions and meds reviewed at length with son. IV and monitor removed. Pt discharged home with family at approx 1600.
== END 2024-08-25 16:51 | disposition home or self-care (01) | DRG 66 ==
LOC: ICU 22:05
PROVIDERS: Emergency Medicine; Registered Nurse; ADMITTING PHYSICIAN Hospitalist; ATTENDING PHYSICIAN Hospitalist; CONSULT PHYSICIAN Internal Medicine; CONSULT PHYSICIAN Internal Medicine Cardiovascular Disease; CONSULT PHYSICIAN Psychiatry & Neurology Clinical Neurophysiology; EMERGENCY PHYSICIAN Student in an Organized Health Care Education/Training Program
DX: I63.531 Cerebral infarction due to unspecified occlusion or stenosis of right posterior cerebral artery (principal); G40.901 Epilepsy, unspecified, not intractable, with status epilepticus; D50.9 Iron deficiency anemia, unspecified; K21.9 Gastro-esophageal reflux disease without esophagitis; M06.9 Rheumatoid arthritis, unspecified; I10 Essential (primary) hypertension; E11.9 Type 2 diabetes mellitus without complications; Z79.82 Long term (current) use of aspirin; Z79.84 Long term (current) use of oral hypoglycemic drugs; Z82.49 Family history of ischemic heart disease and other diseases of the circulatory system; M19.90 Unspecified osteoarthritis, unspecified site; H53.40 Unspecified visual field defects; E78.5 Hyperlipidemia, unspecified
CPT/HCPCS: 70450; 70544; 70548; 70553; 80048; 80053; 80061; 82962; 83036; 83690; 83735; 85025; 85027; 85610; 85730; 92523; 92610; 93005; 93306; 97116; 97167; 97530; 97535